=== PATIENT | female | born 1990 | race Caucasian/White ===

== ENCOUNTER 2017-04-23 08:52 | Emergency (ER) | payer SELFPAY ==
[~2017-04-23] VITALS: Ht 157.5 cm; Wt 48.0 kg
[~2017-04-23 08:52] MED LIST: ADDE20XR PO; DOXY100T PO
[2017-04-23 08:54] VITALS: BP 119/70; PULSE 119; RESP 18; TEMP 98.9; O2SAT 100
[2017-04-23] MEDS ORDERED: AUGM875T3 PO (09:46)
[2017-04-23] MEDS ORDERED: CHLO.12%30 SWISH-SPIT (09:46)
--- NOTE | 2017-04-23 09:46 | PD ---
HPI . Dental abscess Chief Complaint: Oral / Dental Pain or Problem Time Seen by Provider: 09:42 Travel History International Travel<30 days: No Contact w/Intl Traveler<30days: No Traveled to known affect area: No History of Present Illness HPI 26-year-old female presents emergency department for evaluation of right-sided oral swelling and pain since last . She denies any major medical history. Patient doesn't take any daily medication. Patient denies any fever, chills, nausea, vomiting, throat pain, nasal congestion. PFSH Past Medical History ADHD: Yes Asthma: Yes Bipolar Disorder: Yes Genitourinary: Yes (UTIs) Immunizations Current: No Influenza Vaccination: No ?: Not LMP: 03/16/17 : 0 Past Surgical History Surgical History: No Previous Surgery Social History Alcohol Use: No Tobacco Use: Yes (3-4 CIGS/DAY) Substance Use: No Allergies-Medications (Allergen,Severity, Reaction): Coded Allergies: Sulfa (Sulfonamide Antibiotics) (Unverified Allergy, Severe, 04/23/17) Reported Meds & Prescriptions Reported Meds & Active Scripts Active Chlorhexidine Gluconate (Mouth) Liq (Chlorhexidine Gluconate) 0.12% Soln 15 Ml SWISH-SPIT BID Augmentin (Amoxicillin-Clavulanate) 875-125 Mg Tab 1 Tab PO BID 7 Days Review of Systems Except as stated in HPI: all other systems reviewed are Neg Physical Exam Narrative GENERAL: Well-nourished, well-developed 26-year-old female patient in no acute distress. Nontoxic appearing. SKIN: Focused skin assessment warm/dry. HEAD: Normocephalic. Traumatic. EYES: No scleral icterus. No injection or drainage. EARS: Bilateral pinnae and external canals appear within normal limits. Bilateral tympanic membranes without erythema, dullness or perforation. MOUTH: Right lateral erythema and edema noted posterior aspect of tooth #32. No areas of fluctuation noted. Mucous membranes moist, no lesions, tongue and gums appear normal. THROAT: No pharyngeal injection, exudates, or tonsillar hypertrophy. Airway is patent. NECK: Supple, trachea midline. No JVD or lymphadenopathy. CARDIOVASCULAR: Regular rate and rhythm without murmurs, gallops, or rubs. RESPIRATORY: Breath sounds equal bilaterally. No accessory muscle use. GASTROINTESTINAL: Abdomen soft, non-tender, nondistended. MUSCULOSKELETAL: No cyanosis, or edema. Data Data Last Documented VS Vital Signs Date Time Temp Pulse Resp B/P (MAP) Pulse Ox O2 Delivery O2 Flow Rate FiO2 04/23/17 09:54 04/23/17 08:54 98.9 119 18 100 Orders Orders Ed Discharge Order (04/23/17 09:46) MDM Medical Decision Making Medical Screen Exam Complete: Yes Emergency Medical Condition: Yes Differential Diagnosis Different diagnosis includes but not limited to oral abscess, oral cellulitis, dental caries, dentalgia Narrative Course Patient was given a prescription for Augmentin and chlorhexidine mouthwash and instructions to follow-up with a dentist, take ibuprofen as needed for pain or fevers, and return the emergency Department with any worsening condition. Diagnosis Primary Impression: Infection of mouth Referrals: Dentist Patient Instructions: Dental Abscess (ED), General Instructions Additional Instructions: Please return to emergency department if your symptoms return or worsen. Follow up with dentist. Take medications as prescribed. May take [id number] ibuprofen as needed for pain or swelling. May use applied clove oil to cotton swab and apply to area to help with pain Med/Other Pt SpecificInfo: Prescription(s) given Scripts Chlorhexidine Gluconate (Mouth) Liq (Chlorhexidine Gluconate (Mouth) Liq) 0.12% Soln 15 ML SWISH-SPIT BID, #473 ML 0 Refills Prov: Halie Ann 04/23/17 Amoxicillin-Clavulanate (Augmentin) 875-125 Mg Tab 1 TAB PO BID for Infection for 7 Days, #14 TAB 0 Refills Prov: Halie Ann 04/23/17 Disposition: 01 DISCHARGE HOME Condition: Stable Halie Ann Apr 23, 2017 09:46
== END 2017-04-23 10:10 | disposition home or self-care (01) ==
LOC: NEPD 08:52
DX: B99.9 Unspecified infectious disease (principal); Z72.0 Tobacco use
CPT/HCPCS: 99283